=== PATIENT | male | born 1950 | race Caucasian/White ===

== ENCOUNTER → 2021-06-30 | Outpatient (CLI) | payer MEDICARE ==
[~2021-06-30] MED LIST: PROHANCE 279.3MG/ML 15ML VIAL As Ordered ONE; PROHANCE 279.3MG/ML 5ML VIAL As Ordered ONE
== END ==
LOC: M RAD 10:44
PROVIDERS: ATTEND Urology
DX: C61 Malignant neoplasm of prostate (principal)
CPT/HCPCS: 72197; A9576

== ENCOUNTER → 2022-05-03 | Outpatient (CLI) | payer MEDICARE, OTHER | LOC: M RAD 08:01 | PROVIDERS: ATTEND Nurse Practitioner Family | DX: Z87.891 Personal history of nicotine dependence (principal) ==

== ENCOUNTER → 2022-06-24 | Outpatient (REF) | payer MEDICARE | LOC: M LABSMT 09:50 | PROVIDERS: ATTEND Urology | DX: C61 Malignant neoplasm of prostate (principal) ==

== ENCOUNTER → 2023-08-29 | Outpatient (REF) | payer MEDICARE ==
[2023-08-29 18:26] LABS: APPEARANCE, URINE CLOUDY (CLEAR); BACTERIA, URINE AUTO NEGATIVE (NEGATIVE); BILIRUBIN, URINE AUTO NEGATIVE (NEGATIVE); BLOOD, URINE BLOOD NEGATIVE (NEGATIVE); COLOR, URINE AMBER (YELLOW); GLUCOSE, URINE (UA) AUTO NEGATIVE (NEGATIVE); KETONE, URINE AUTO TRACE mg/dL (NEGATIVE); LEUKOCYTE ESTERASE, URINE AUTO NEGATIVE (NEGATIVE); MUCUS, URINE SMALL (NEGATIVE); NITRITE, URINE AUTO NEGATIVE (NEGATIVE); PROTEIN, URINE AUTO NEGATIVE (NEGATIVE); RBC, URINE AUTO 0 /HPF (0-3); SPECIFIC GRAVITY URINE AUTO 1.021 (1.002-1.035); SQUAMOUS EPITHELIAL CELL UR AU 0 /HPF (0-6); WBC, URINE AUTO 1 /HPF (0-3)
== END ==
LOC: M SMT 17:20
PROVIDERS: ATTEND Urology
DX: C61 Malignant neoplasm of prostate (principal); N39.44 Nocturnal enuresis

== ENCOUNTER → 2024-03-22 | Outpatient (REF) | payer MEDICARE | LOC: M SMT 13:04 | PROVIDERS: ATTEND Urology | DX: C61 Malignant neoplasm of prostate (principal); R97.20 Elevated prostate specific antigen [PSA]; Z79.899 Other long term (current) drug therapy; Z87.891 Personal history of nicotine dependence ==

== ENCOUNTER 2024-05-03 02:42 | Emergency (ER) | payer MEDICARE ==
[2024-05-03 03:47] LABS: BASO # 0.1 10^3/uL (0.0-0.2); BASO % 0.9 % (0.0-1.0); EOS # 0.1 10^3/uL (0.0-0.5); EOS % 0.6 % (0.0-3.0); HEMATOCRIT 40.9 % (42.0-52.0); HEMOGLOBIN 13.5 g/dl (13.5-17.5); LYMPH # 1.8 10^3/uL (1.5-5.0); MEAN CORPUSCULAR HEMOGLOBIN 30.3 pg (27.0-33.0); MEAN CORPUSCULAR VOLUME 91.9 fl (80.0-96.0); MONO # 0.8 10^3/uL (0.0-0.8); MONO % 7.8 % (2.0-8.0); NEUTROPHILS % 73.5 % (36.0-66.0); PLATELET COUNT, AUTOMATED 282 10^3/uL (150-450); RED BLOOD COUNT 4.45 10^6/uL (4.30-6.10); WHITE BLOOD COUNT 10.8 10^3/uL (4.0-10.0)
[2024-05-03] MEDS: ACETAMINOPHEN *IV* 1,000 MG in IV 1 EA IV ONE (04:06)
[2024-05-03] MEDS: NS (Normal Saline) 0.9% 1,000 ML IV ONE (04:09)
[2024-05-03] MEDS: MAG SULF 1GM/100ML (MAG RUN) 1 GM in IV 1 EA IV ONE (04:10)
[2024-05-03] MEDS: KETOROLAC 30 MG/ML 1ML VIAL IV ONE (04:12)
[2024-05-03] MEDS: METOCLOPRAMIDE INJ 10MG/2ML VIAL IV ONE (04:13)
[2024-05-03 04:18] LABS: BLOOD UREA NITROGEN 17 MG/DL (9-23); CALCIUM LEVEL 9.2 MG/DL (8.3-10.6); CARBON DIOXIDE LEVEL 26 MMOL/L (20-31); CHLORIDE LEVEL 104 MMOL/L (98-107); CREATININE FOR GFR 1.16 MG/DL (0.70-1.30); GLOMERULAR FILTRATION RATE > 60.0 (>42); GLUCOSE, FASTING 124 MG/DL (74-106); MAGNESIUM LEVEL 1.7 MG/DL (1.8-2.4); POTASSIUM SERUM 4.1 MMOL/L (3.5-5.1); SODIUM LEVEL 141 MMOL/L (136-145)
[2024-05-03 07:30] VITALS: BP 167/79; TEMP 97.7; O2SAT 97
[2024-05-03] MEDS ORDERED: POTA1TAB23 PO (18:48)
[2024-05-03] MEDS ORDERED: ARIP1TAB6 PO (18:48)
[2024-05-03] MEDS ORDERED: FOLI1TAB11 PO (18:48)
[2024-05-03] MEDS ORDERED: PANT40TA29 (18:48)
[2024-05-03] MEDS ORDERED: METF500T13 PO (18:48)
[2024-05-03] MEDS ORDERED: ELIQ5TAB PO (18:48)
[2024-05-03] MEDS ORDERED: ATOR40TA75 PO (18:48)
[2024-05-03] MEDS ORDERED: CYCL5TAB4 (18:48)
[2024-05-03] MEDS ORDERED: AMIT25TA19 PO (18:48)
[2024-05-03] MEDS ORDERED: PROP10TA56 PO (18:48)
[2024-05-03] MEDS ORDERED: VALS80TA PO (18:48)
[2024-05-03] MEDS ORDERED: HYDR-3713 (18:48)
[2024-05-03] MEDS ORDERED: LEXA1TAB PO (18:48)
[2024-05-03] MEDS ORDERED: BETA5OI TOP (21:32)
[2024-05-03] MEDS ORDERED: DIVA250T67 PO (21:32)
[2024-05-03] MEDS ORDERED: QUET1TAB17 PO (21:32)
== END 2024-05-03 07:57 | disposition home or self-care (01) ==
LOC: M ED 02:42
DX: G43.909 Migraine, unspecified, not intractable, without status migrainosus (principal); I10 Essential (primary) hypertension; E78.5 Hyperlipidemia, unspecified; Z79.82 Long term (current) use of aspirin; Z79.899 Other long term (current) drug therapy

== ENCOUNTER 2024-05-03 18:16 | Emergency (ER) | payer MEDICARE ==
[~2024-05-03] VITALS: Ht 185.4 cm; Wt 109.4 kg
[2024-05-03] MEDS ORDERED: ELIQ5TAB PO (18:48)
[2024-05-03] MEDS ORDERED: LEXA1TAB PO (18:48)
[2024-05-03] MEDS ORDERED: HYDR-3713 (18:48)
[2024-05-03] MEDS ORDERED: CYCL5TAB4 (18:48)
[2024-05-03] MEDS ORDERED: POTA1TAB23 PO (18:48)
[2024-05-03] MEDS ORDERED: METF500T13 PO (18:48)
[2024-05-03] MEDS ORDERED: ATOR40TA75 PO (18:48)
[2024-05-03] MEDS ORDERED: PANT40TA29 (18:48)
[2024-05-03] MEDS ORDERED: AMIT25TA19 PO (18:48)
[2024-05-03] MEDS ORDERED: ARIP1TAB6 PO (18:48)
[2024-05-03] MEDS ORDERED: VALS80TA PO (18:48)
[2024-05-03] MEDS ORDERED: FOLI1TAB11 PO (18:48)
[2024-05-03] MEDS ORDERED: PROP10TA56 PO (18:48)
[2024-05-03] MEDS: NS (Normal Saline) 0.9% 1,000 ML IV ONE (20:10)
[2024-05-03 20:13] LABS: BASO # 0.1 10^3/uL (0.0-0.2); BASO % 0.3 % (0.0-1.0); HEMATOCRIT 43.7 % (42.0-52.0); HEMOGLOBIN 14.4 g/dl (13.5-17.5); LYMPH # 1.6 10^3/uL (1.5-5.0); LYMPH % 10.9 % (24.0-44.0); MEAN CORPUSCULAR HEMOGLOBIN 30.3 pg (27.0-33.0); MONO # 1.2 10^3/uL (0.0-0.8); MONO % 8.1 % (2.0-8.0); NEUTROPHILS # 11.9 10^3/uL (1.5-8.5); NEUTROPHILS % 80.2 % (36.0-66.0); PLATELET COUNT, AUTOMATED 347 10^3/uL (150-450); RED BLOOD COUNT 4.75 10^6/uL (4.30-6.10); WHITE BLOOD COUNT 14.8 10^3/uL (4.0-10.0)
[2024-05-03 20:22] LABS: KETONE, URINE AUTO RFX NEGATIVE (NEGATIVE); LEUKOCYTE ESTERASE UR AUTO RFX NEGATIVE (NEGATIVE); MUCUS, URINE RFX SMALL (NEGATIVE); NITRITE, URINE AUTO RFX NEGATIVE (NEGATIVE); RBC, URINE AUTO RFX 0 /HPF (0-3); SQUAM EPITHELIAL CELL UR AURFX 0 /HPF (0-6); WBC, URINE AUTO RFX 0 /HPF (0-3)
[2024-05-03 20:35] LABS: BLOOD UREA NITROGEN 18 MG/DL (9-23); CALCIUM LEVEL 9.4 MG/DL (8.3-10.6); CARBON DIOXIDE LEVEL 25 MMOL/L (20-31); CHLORIDE LEVEL 105 MMOL/L (98-107); CREATININE FOR GFR 1.24 MG/DL (0.70-1.30); GLOMERULAR FILTRATION RATE > 60.0 (>42); GLUCOSE, FASTING 117 MG/DL (74-106); POTASSIUM SERUM 4.7 MMOL/L (3.5-5.1); SALICYLATE LEVEL < 3.0 MG/DL (<30); SODIUM LEVEL 142 MMOL/L (136-145)
[2024-05-03 20:39] LABS: THYROID STIMULATING HORMONE 1.878 uIU/ML (0.55-4.78)
[2024-05-03] MEDS: MAG SULF 1GM/100ML (MAG RUN) 1 GM in IV 1 EA IV ONE ×2 (20:44→21:30)
[2024-05-03 20:45] LABS: AMPHETAMINES LEVEL URINE NEGATIVE (NEGATIVE); BARBITURATES URINE NEGATIVE (NEGATIVE); BENZODIAZEPINES URINE NEGATIVE (NEGATIVE); CANNABINOIDS URINE NEGATIVE (NEGATIVE); COCAINE METABOLITE URINE NEGATIVE (NEGATIVE); METHADONE URINE NEGATIVE (NEGATIVE); PHENCYCLIDINE URINE NEGATIVE (NEGATIVE)
[2024-05-03] MEDS: VALPROATE SOD INJ 1,000 MG in D5W 50 ML IV ONE (20:46)
[2024-05-03 20:49] LABS: OPIATES URINE POSITIVE (NEGATIVE)
[2024-05-03] MEDS ORDERED: DIVA250T67 PO (21:32)
[2024-05-03] MEDS ORDERED: QUET1TAB17 PO (21:32)
[2024-05-03] MEDS ORDERED: BETA5OI TOP (21:32)
[2024-05-03] MEDS ORDERED: HOME MED LIST COMPLETE! XX SCH (21:35)
[2024-05-03 22:14] VITALS: BP 164/86; TEMP 97.9; O2SAT 99
[2024-05-03 22:21] LABS: PROCALCITONIN 0.12 ng/ml
== END 2024-05-03 22:24 | disposition home or self-care (01) ==
LOC: M ED 18:16
DX: G43.909 Migraine, unspecified, not intractable, without status migrainosus (principal); I10 Essential (primary) hypertension; E78.5 Hyperlipidemia, unspecified; E11.9 Type 2 diabetes mellitus without complications; F32.A Depression, unspecified; Z79.82 Long term (current) use of aspirin; Z79.899 Other long term (current) drug therapy
CPT/HCPCS: 70450; 71045; 80048; 80143; 80307; 81001; 83735; 84145; 84443; 85025; 87486; 87581; 87633; 87798; 96361; 96365; 96366; 96368; 96374; 96375; 99284; J0131; J1100; J1885; J2765; J3475

== ENCOUNTER 2024-06-03 15:35 | Inpatient (IN) | payer OTHER, MEDICARE ==
[~2024-06-03] VITALS: Ht 185.4 cm; Wt 105.6 kg
[~2024-06-03 15:35] MED LIST changes: +AMIT25TA19 PO; +ARIP1TAB6 PO; +ATOR40TA75 PO; +BETA5OI TOP; +CYCL5TAB4; +DIVA250T67 PO; +ELIQ5TAB PO; +FOLI1TAB11 PO; +HYDR-3713; +LEXA1TAB PO; +METF500T13 PO; +PANT40TA29 PO; +POTA1TAB23 PO; -PROHANCE 279.3MG/ML 15ML VIAL As Ordered ONE; -PROHANCE 279.3MG/ML 5ML VIAL As Ordered ONE; +PROP10TA56 PO; +QUET1TAB17 PO; +VALS80TA PO
[2024-06-03 16:23] LABS: HEMATOCRIT 43.4 % (42.0-52.0); HEMOGLOBIN 14.1 g/dl (13.5-17.5); MEAN CORPUSCULAR HEMOGLOBIN 29.6 pg (27.0-33.0); MEAN CORPUSCULAR HGB CONC 32.5 g/dl (32.0-36.5); PLATELET COUNT, AUTOMATED 307 10^3/uL (150-450); RED BLOOD COUNT 4.77 10^6/uL (4.30-6.10); WHITE BLOOD COUNT 12.2 10^3/uL (4.0-10.0)
[2024-06-03 16:49] LABS: ETHYL ALCOHOL (ETHANOL) 0.003 % (0.000-0.010)
[2024-06-03 16:51] LABS: ALBUMIN 4.4 G/DL (3.2-5.2); ALKALINE PHOSPHATASE 96 U/L (40-129); ALT/SGPT 25 U/L (7.0-40); AST/SGOT 16 U/L (<34); BILIRUBIN,DIRECT 0.4 MG/DL (<0.4); BILIRUBIN,TOTAL 1.1 MG/DL (0.3-1.2); BLOOD UREA NITROGEN 16 MG/DL (9-23); CALCIUM LEVEL 10.2 MG/DL (8.3-10.6); CARBON DIOXIDE LEVEL 24 MMOL/L (20-31); CHLORIDE LEVEL 102 MMOL/L (98-107); CREATININE FOR GFR 1.11 MG/DL (0.70-1.30); GLOMERULAR FILTRATION RATE 69.3 (>42); GLUCOSE, FASTING 101 MG/DL (74-106); POTASSIUM SERUM 3.7 MMOL/L (3.5-5.1); SALICYLATE LEVEL < 3.0 MG/DL (<30); SODIUM LEVEL 137 MMOL/L (136-145); TOTAL PROTEIN 7.6 G/DL (5.7-8.2)
[2024-06-03 16:53] LABS: THYROID STIMULATING HORMONE 1.765 uIU/ML (0.55-4.78)
[2024-06-03 17:08] LABS: VALPROIC ACID (DEPAKOTE) < 3.0 UG/ML (50.0-100.0)
[2024-06-03] MEDS ORDERED: AMIT10TA7 PO (18:14)
[2024-06-03] MEDS ORDERED: HYDR-3363 PO (18:17)
[2024-06-03] MEDS ORDERED: RA M500C PO (18:17)
[2024-06-03] MEDS ORDERED: RA B1TAB2 PO (18:17)
[2024-06-03] MEDS ORDERED: MELATAB3 PO (18:17)
[2024-06-03] MEDS ORDERED: HOME MED LIST COMPLETE! XX SCH (18:20)
[2024-06-03 18:34] LABS: AMPHETAMINES LEVEL URINE NEGATIVE (NEGATIVE)
[2024-06-03 18:35] LABS: BARBITURATES URINE NEGATIVE (NEGATIVE); BENZODIAZEPINES URINE NEGATIVE (NEGATIVE); CANNABINOIDS URINE NEGATIVE (NEGATIVE); COCAINE METABOLITE URINE NEGATIVE (NEGATIVE); METHADONE URINE NEGATIVE (NEGATIVE); OPIATES URINE NEGATIVE (NEGATIVE); PHENCYCLIDINE URINE NEGATIVE (NEGATIVE)
[2024-06-03] MEDS ORDERED: traZODone 50 MG TAB PO PRN (18:55)
[2024-06-03 20:43] VITALS: BP 139/80; TEMP 97.2; O2SAT 99
[2024-06-03] MEDS: MAALOX 30 ML SUSP *UDC PO PRN (21:03)
[2024-06-03] MEDS: traZODone 100 MG TAB PO ONE (21:38)
[2024-06-03] MEDS: ACETAMINOPHEN 325 MG TAB PO PRN (23:46)
[2024-06-04 06:00] VITALS: BP 112/70; TEMP 97.7; O2SAT 98
[2024-06-04] MEDS: hydroCHLOROthiazide 12.5 MG CAPSULE PO SCH (08:05)
[2024-06-04] MEDS: PROPRANOLOL 10 MG TAB PO SCH (08:05)
[2024-06-04] MEDS: metFORMIN (GLUCOPHAGE) 500MG TAB PO SCH (08:05)
[2024-06-04] MEDS: ATORVASTATIN 20 MG TAB PO SCH (08:05)
[2024-06-04] MEDS: PANTOPRAZOLE 40MG TAB (PROTONIX) PO SCH (08:05)
[2024-06-04] MEDS: VALSARTAN 80 MG TAB (DIOVAN) PO SCH (08:05)
[2024-06-04] MEDS: APIXABAN 5 MG TAB (ELIQUIS) PO SCH (08:06)
[2024-06-04] MEDS: busPIRone 5 MG TAB PO SCH (10:51)
[2024-06-04] MEDS: GABAPENTIN 100 MG CAP PO SCH (10:51)
[2024-06-04 15:15] VITALS: BP 145/77; TEMP 97.2; O2SAT 98
[2024-06-04] MEDS: RAMELTEON 8 MG TAB (ROZEREM) PO SCH (20:17)
[2024-06-04] MEDS: FOLIC ACID 1MG TAB PO SCH (20:21)
[2024-06-04] MEDS: AMITRIPTYLINE 10MG TABLET PO SCH (20:21)
[2024-06-04] MEDS ORDERED: AMITRIPTYLINE 10MG TABLET PO SCH (21:00)
[2024-06-05 08:06] VITALS: BP 111/66
[2024-06-05] MEDS: POTASSIUM CHLORIDE 10MEQ SR TABLET PO SCH (08:12)
[2024-06-05] MEDS: FUROSEMIDE 20 MG TAB PO SCH (08:12)
[2024-06-05] MEDS: PILL CUTTER 1 EACH XX PRN (08:13)
[2024-06-05] MEDS: LIDOCAINE 5% (LIDODERM) PATCH TD SCH (11:24)
[2024-06-05 16:02] VITALS: BP 93/60; TEMP 97.8; O2SAT 100
[2024-06-06 06:50] VITALS: BP 124/67; TEMP 97.4; O2SAT 99
[2024-06-06] MEDS: MOM 30ML SUSPENSION UDC PO PRN (07:29)
[2024-06-06] MEDS: DOCUSATE SODIUM 100MG CAPSULE PO ONE (14:03)
[2024-06-06] MEDS: GABAPENTIN 100 MG CAP PO SCH (15:52)
[2024-06-06 16:16] VITALS: BP 124/70; TEMP 97.5; O2SAT 99
[2024-06-06] MEDS: MIRALAX *UNIT DOSE* 17GM PACKET PO SCH (19:00)
[2024-06-06] MEDS: QUEtiapine FUMARATE 50MG TAB PO SCH (20:35)
[2024-06-07 06:45] VITALS: BP 119/60; TEMP 97.4; O2SAT 98
[2024-06-07] MEDS: PARoxetine 10MG TABLET PO SCH (10:17)
[2024-06-07] MEDS: GABAPENTIN 100 MG CAP PO SCH (16:07)
[2024-06-07 17:29] VITALS: BP 116/75; TEMP 97.3; O2SAT 100
[2024-06-08 07:04] VITALS: BP 131/75; TEMP 97.4; O2SAT 98
[2024-06-08 09:20] LABS: CALCIUM LEVEL 9.4 MG/DL (8.3-10.6); CREATININE FOR GFR 0.99 MG/DL (0.70-1.30); GLOMERULAR FILTRATION RATE 79.4 (>42); MAGNESIUM LEVEL 1.8 MG/DL (1.8-2.4); POTASSIUM SERUM 4.2 MMOL/L (3.5-5.1)
[2024-06-08] MEDS: GABAPENTIN 100 MG CAP PO SCH (15:15)
[2024-06-08 16:02] VITALS: BP 147/72; TEMP 97.3; O2SAT 98
[2024-06-09 06:34] VITALS: BP 131/78; TEMP 98; O2SAT 99
[2024-06-09 08:17] VITALS: BP 124/70
[2024-06-09 14:37] VITALS: BP 121/69; TEMP 97.3; O2SAT 95
[2024-06-10 06:33] VITALS: BP 110/69; TEMP 97.7; O2SAT 97
[2024-06-10 10:05] VITALS: BP 129/79
[2024-06-10 10:17] VITALS: BP 129/79
[2024-06-10] MEDS ORDERED: QUET50TA4 PO (11:57)
[2024-06-10] MEDS ORDERED: FURO20TA2 PO (11:57)
[2024-06-10] MEDS ORDERED: PARO5TAB PO (11:57)
[2024-06-10] MEDS ORDERED: BUSP5TA PO (11:57)
[2024-06-10] MEDS ORDERED: HYDR-4570 PO (11:57)
[2024-06-10] MEDS ORDERED: GABA-1171 PO (11:57)
== END 2024-06-10 14:17 | disposition home or self-care (01) | DRG 880 ==
LOC: M ED 15:35 → M ED INP 18:55 → M PSY 20:40
PROVIDERS: ADMIT Student in an Organized Health Care Education/Training Program; ATTEND Student in an Organized Health Care Education/Training Program
DX: F41.9 Anxiety disorder, unspecified (principal); R45.851 Suicidal ideations; F32.9 Major depressive disorder, single episode, unspecified; I25.10 Atherosclerotic heart disease of native coronary artery without angina pectoris; Z95.1 Presence of aortocoronary bypass graft; Z79.01 Long term (current) use of anticoagulants; Z86.711 Personal history of pulmonary embolism; I11.0 Hypertensive heart disease with heart failure; K21.9 Gastro-esophageal reflux disease without esophagitis; N40.0 Benign prostatic hyperplasia without lower urinary tract symptoms; I87.8 Other specified disorders of veins; C61 Malignant neoplasm of prostate; G47.00 Insomnia, unspecified; I25.2 Old myocardial infarction; I50.9 Heart failure, unspecified; E11.40 Type 2 diabetes mellitus with diabetic neuropathy, unspecified; Z79.899 Other long term (current) drug therapy